=== PATIENT | female | born 1985 | race Caucasian/White ===

== ENCOUNTER → 2022-06-14 11:17 | Outpatient (BNVA) | payer BC, SELFPAY | PROVIDERS: Family Provider Family Medicine; PCP Family Medicine; Visit Provider Nurse Practitioner Family | DX: E66.01 Morbid (severe) obesity due to excess calories (principal); R07.9 Chest pain, unspecified; Z12.4 Encounter for screening for malignant neoplasm of cervix; I45.10 Unspecified right bundle-branch block | CPT/HCPCS: 80053; 80061; 83036; 84443; 84484; 85025 ==

== ENCOUNTER → 2022-06-21 09:44 | Outpatient (BNVA) | payer BC, MEDICAID, SELFPAY | PROVIDERS: Family Provider Family Medicine; PCP Family Medicine; Visit Provider Nurse Practitioner Family | DX: E66.01 Morbid (severe) obesity due to excess calories (principal); R73.03 Prediabetes; E03.9 Hypothyroidism, unspecified; I10 Essential (primary) hypertension | CPT/HCPCS: 84439; 84481 ==

== ENCOUNTER → 2022-07-01 11:00 | Outpatient (BNVA) | payer BC, MEDICAID, SELFPAY | PROVIDERS: Family Provider Family Medicine; PCP Family Medicine; Visit Provider Nurse Practitioner Women's Health | DX: N91.5 Oligomenorrhea, unspecified (principal); Z12.4 Encounter for screening for malignant neoplasm of cervix | CPT/HCPCS: 84146; 84702; 87624 ==

== ENCOUNTER 2022-08-31 12:48 | Outpatient (CLI) | payer BC, MEDICAID, SELFPAY ==
--- NOTE | 2022-08-31 13:45 | US_ITS ---
WS: [id number] US transvaginal [id number] HISTORY: N91.5 - Oligomenorrhea, unspecified COMPARISON: 05/06/2017 Uterus: 8.7 cm x 4.6 cm x 5.0 cm. Normal size anteverted uterus with mild flexion. No fibroid or mass. Endometrium: 0.7 cm. Normal. Right ovary: 2.9 cm x 2.6 cm x 1.6 cm. Normal size and vascularity, no cystic or solid masses. Left ovary: 1.7 cm x 1.1 cm x 1.7 cm. Normal size and vascularity, no cystic or solid masses. Small, physiologic amount of free fluid in the cul-de-sac. US/US transvaginal [id number] IMPRESSION: Normal pelvic ultrasound.
== END 2022-08-31 12:49 | disposition home or self-care (01) ==
PROVIDERS: PCP Nurse Practitioner Family; Visit Provider Nurse Practitioner Women's Health
DX: N91.5 Oligomenorrhea, unspecified (principal); E28.2 Polycystic ovarian syndrome; Z68.45 Body mass index [BMI] 70 or greater, adult
CPT/HCPCS: 76830

== ENCOUNTER → 2022-09-13 11:20 | Outpatient (BNVA) | payer BC, MEDICAID, SELFPAY | PROVIDERS: PCP Nurse Practitioner Family; Visit Provider Nurse Practitioner Family | DX: R73.03 Prediabetes (principal) | CPT/HCPCS: 80053; 80061; 83036; 84402; 84443; 85025 ==

== ENCOUNTER → 2022-12-06 11:50 | Outpatient (BNVA) | payer BC, MEDICAID, SELFPAY | PROVIDERS: PCP Nurse Practitioner Family; Visit Provider Nurse Practitioner Family | DX: R73.03 Prediabetes (principal); E28.2 Polycystic ovarian syndrome; I10 Essential (primary) hypertension; E03.9 Hypothyroidism, unspecified; E66.9 Obesity, unspecified | CPT/HCPCS: 80053; 80061; 83036; 84443; 85025 ==

== ENCOUNTER → 2023-02-28 12:01 | Outpatient (BNVA) | payer MEDICAID, SELFPAY | PROVIDERS: PCP Nurse Practitioner Family; Visit Provider Nurse Practitioner Family | DX: I10 Essential (primary) hypertension (principal) | CPT/HCPCS: 80053; 80061; 83036; 84443; 84702; 85025 ==

== ENCOUNTER → 2023-05-16 12:05 | Outpatient (BNVA) | payer MEDICAID, SELFPAY | PROVIDERS: PCP Nurse Practitioner Family; Visit Provider Nurse Practitioner Family | DX: R73.03 Prediabetes (principal); I10 Essential (primary) hypertension; E03.9 Hypothyroidism, unspecified | CPT/HCPCS: 80053; 80061; 82746; 83036; 84443; 85025 ==

== ENCOUNTER → 2023-07-25 11:23 | Outpatient (BNVA) | payer MEDICAID, SELFPAY | PROVIDERS: PCP Nurse Practitioner Family; Visit Provider Nurse Practitioner Family | DX: E03.9 Hypothyroidism, unspecified (principal) | CPT/HCPCS: 84439; 84443; 84481 ==

== ENCOUNTER → 2023-07-27 15:39 | Outpatient (BNVA) | payer MEDICAID, SELFPAY | PROVIDERS: PCP Nurse Practitioner Family; Visit Provider Internal Medicine | DX: R07.9 Chest pain, unspecified (principal); E03.9 Hypothyroidism, unspecified | CPT/HCPCS: 93005 ==

== ENCOUNTER 2023-08-03 09:56 | Day surgery (SDC) | payer MEDICAID, SELFPAY ==
[2023-08-01 10:47] VITALS: BMI 70.7
[2023-08-03 10:50] VITALS: BP 162/113; PULSE 69; RESP 18; TEMP 36.2; O2SAT 97; BMI 70.7
[2023-08-03] MEDS: sodium chloride 0.9% 1,000 ML 30 ML IV (10:57)
--- NOTE | 2023-08-03 10:57 | ANES.PREANE2 ---
Pre-Anesthetic Assessment Height/Weight: Height 1.8 m Weight 229.971 kg Temp Pulse Resp BP Pulse Ox O2 Del Method 97.2 F L 69 18 162/113 97 Room Air 08/03/23 10:50 08/03/23 10:50 08/03/23 10:50 08/03/23 10:50 08/03/23 10:50 08/03/23 10:50 Preop Diagnosis: GERD Operation Date: 08/03/23 11:30 Proposed Procedures p EGD 05038, K21.9(Not Applicable) - Kuldip Ji DO Familial anesthetic complications: None Was Beta Bruce taken within 24 hours: N/A Was Clonidine taken within 24 hours: N/A Last intake: Intake Last Liquid Date 08/02/23 Last Liquid Time 20:00 Last Solid Date 08/02/23 Last Solid Time 18:00 Social No alcohol and No tobacco Exam alert, oriented x 3, clear to auscultation bilaterally and regular rate & rhythm Airway Submandibular: within normal limits Cervical ROM: within normal limits Mallampati: Class III Dentition: full History/ROS No significant history except as noted and No significant complaints Pulmonary Asthma (No inhaler), Exertional Dyspnea and Sleep Apnea CV/HEM Hypertension Pericardial effusion 16 years ago None reported PCOS Hepatic None reported GI Gastroesophageal Reflux Disease (None this morning) Metabolic Diabetes Mellitus (Prediabetes), Morbid Obesity and Thyroid Disease [facility] [place] None reported Neuropsych Headache Anesthetic Plan ASA status: 3 Anesthesia: Anesthesia Evaluation, General and MAC Risk of > 500 ml blood loss (7ml/kg in children): No Medications/Allergies Home Medications Medication Instructions Recorded Confirmed Last Taken Type albuterol sulfate 2.5 mg/3 mL 2.5 mg (3 mL) inhalation QID PRN 05/16/23 08/03/23 Unknown Rx (0.083 %) solution for nebulization shortness of breath or wheezing #75 mL levothyroxine 88 mcg capsule 88 mcg PO DAILY #30 caps 05/16/23 08/03/23 08/03/23 Rx nebulizer accessories #1 ea 05/16/23 07/27/23 Unknown Rx lisinopril 40 mg tablet 40 mg PO DAILY #90 tabs 07/25/23 08/03/23 08/02/23 Rx metformin 500 mg 24 hr 1,000 mg PO DAILY 03/08/03/23 08/02/23 History tablet,extended release (gastric retention) zinc 50 mg tablet 50 mg PO DAILY 08/01/23 08/03/23 08/02/23 History Allergies Allergy/AdvReac Type Severity Reaction Status Date / Time egg Allergy ADR-Vomitin Verified 08/03/23 10:40 g Current Medications Generic Name Dose Route Start Last Admin Trade Name Freq PRN Reason Stop Dose Admin Sodium Chloride 1,000 mls @ 30 mls/hr 08/03/23 10:15 08/03/23 10:57 Sodium Chloride 0.9% IV 08/04/23 10:14 30 mls/hr .Q24H TIARRA Administration PFSH Anesthesia Medical History Cardiac tamponade Pericardial effusion Hypothyroidism No pertinent past medical history neghx:dm,dvt/pe PCP: [facility] Surgical History S/P pericardiocentesis (~2007) following viral URI. She thinks f/u was [facility]. Family History Unknown Cancer Denies fam hx of cancers, breast, ovarian, uterine, colon, pancreatic or thyroid. Other Diabetes Denies family history of Hypertension Stroke Social History Smoking and tobacco/nicotine status: never used tobacco/nicotine Second hand smoke exposure: No Alcohol intake: never Substance/Drug Use: never Adopted: No Caregiver/support person: No Lives independently: Yes Household members: spouse Housing: House Marital status: Number of children: 0 Highest education level completed: Associate Degree: Occupational, Technical, Vocational Program service: No Current occupational status: unemployed Female Reproductive History Date of last menstrual period: 07/13/23 Data Anesthesia Cardiac Studies: No Data to Display
[2023-08-03 10:59] LABS: OR HCG Qualitative Urine Negative (Negative)
--- NOTE | 2023-08-03 10:59 | W.PM.OPSUD ---
Surgery/Procedure H&P Update DATE OF PROCEDURE: August 03, 2023 DATE H&P PERFORMED: 07/18/23 H&P UPDATE INFORMATION: I have reviewed H&P completed within last 30 days, I have examined patient prior to procedure and No changes to prior documentation PLANNED PROCEDURE: Operation Date: 08/03/23 11:30 Proposed Procedures p EGD 98893, K21.9(Not Applicable) - Kuldip Ji, DO
[2023-08-03 11:01] LABS: Glucose Point of Care 100 mg/dL (70-110)
[2023-08-03 12:00] VITALS: BP 125/75; PULSE 67; RESP 14; TEMP 36.2; O2SAT 95
[2023-08-03 12:13] VITALS: BP 132/97; PULSE 67; RESP 16; O2SAT 97
--- NOTE | 2023-08-03 12:35 | ANE.PACU2 ---
Inpatient post-anesthesia follow up: Airway intact: Yes Vital signs: Temperature 97.1 F Pulse Rate 67 Respiratory Rate 16 Blood Pressure 132/97 Pulse Oximetry 97 Oxygen Delivery Me thod Room Air Oxygen Flow Rate Fraction of Inspir ed Oxygen Hydration adequate: Yes Nausea and vomiting: No Pain level: 1 Mental status: Baseline
== END 2023-08-03 12:35 | disposition home or self-care (01) ==
PROVIDERS: Anesthesiology; PCP Nurse Practitioner Family; Visit Provider Surgery
PROC: 0DJ08ZZ Inspection of Upper Intestinal Tract, Via Natural or Artificial Opening Endoscopic (ICD-10-PCS; CPT 43235; principal; 2023-08-03 11:30)
DX: K21.9 Gastro-esophageal reflux disease without esophagitis (principal); K44.9 Diaphragmatic hernia without obstruction or gangrene; K29.50 Unspecified chronic gastritis without bleeding; G47.30 Sleep apnea, unspecified; I10 Essential (primary) hypertension; E28.2 Polycystic ovarian syndrome; R73.03 Prediabetes; E03.9 Hypothyroidism, unspecified
CPT/HCPCS: 36416; 43239; 81025; 82962; 84703; 88305; J2704; J7030

== ENCOUNTER 2023-08-16 10:25 | Outpatient (CLI) | payer MEDICAID, SELFPAY ==
--- NOTE | 2023-08-16 11:00 | USCV_ITS ---
HectorMana Age: 37 Gender: F : 1985 Exam Date: 08/16/2023 11:07 Ordering Phys: Hal Mendez M.D ([email or web address]) Technologist: RIANA [place] [facility] [place]ication: PRE OP FOR SURGERY HISTORY OF FLUID AROUND HEART BP: / HR: 122 Rhythm: Sinus Technical Quality: Adequate MEASUREMENTS (Male / Female) Normal Values 2D ECHO LV Diastolic Diameter PLAX 4.6 cm 4.2 - 5.9 / 3.9 - 5.3 cm IVS Diastolic Thickness 1.5 cm 0.6 - 1.0 / 0.6 - 0.9 cm IVS Systolic Thickness 1.7 cm LVPW Diastolic Thickness 1.5 cm 0.6 - 1.0 / 0.6 - 0.9 cm LVPW Systolic Thickness 2.0 cm LVOT Diameter 2.1 cm LV Ejection Fraction 2D Teich 66.4 % LV Ejection Fraction MOD 2C 49.7 % LV Ejection Fraction 2C AL 51.2 % LA Diameter 4.1 cm RA Systolic Volume 4C AL 42.3 ml RA Systolic Volume 4C MOD 40.0 ml LA Sys Volume AL 57.9 cm cubed Aorta at Sinotubular Diameter 3.9 cm IVC Diameter 1.9 cm M-MODE LA Ao Ratio MM 1.1 AV Cusp Separation MM 2.4 cm DOPPLER AV Peak Velocity 99.0 cm/s LVOT Peak Velocity 84.0 cm/s AV Area Cont Eq vti 3.0 cm squared AV Area Cont Eq pk 2.9 cm squared MV Area PHT 2.5 cm squared Mitral E to A Ratio 1.3 TV Peak Velocity 104.5 cm/s TR Peak Velocity 114.0 cm/s TR Peak Gradient 5.2 mmHg TR Mean Velocity 71.0 cm/s TR Mean Gradient 2.5 mmHg TR Velocity Time Integral 26.8 cm TV Peak E Velocity 62.0 cm/s Right Atrial Pressure 3.0 mmHg Pulmonary Artery Systolic Pressu 8.2 mmHg PV Peak Velocity 111.0 cm/s RV Ejection Time 0.4 s FINDINGS Left Ventricle Left ventricle is normal in size. LV systolic function is normal with EF of 50-55%. No regional wall motion abnormalities are seen. Right Ventricle Normal in size and function. Right Atrium Normal in size Left Atrium Normal in size Mitral Valve Structurally normal mitral valve. Aortic Valve Grossly normal aortic valve. Tricuspid Valve Insufficient TR jet to evaluate RVSP Pulmonic Valve Not well-visualized Pericardium Grossly normal Aorta Aortic root appears dilated IVC Not well visualized CONCLUSIONS Technically limited quality echocardiogram because of poor ultrasonic windows. Optison was used to better assess LV systolic function. LV systolic function is normal with EF of 50 to 55%. Grossly valves are normal. Aortic root appears dilated. Hal Mendez MD (Electronically Signed) Final Date: 20 August 2023 21:45 S
[2023-08-16] MEDS: perflutren protein-a microsphr 0.22 mg/mL SDV 3 mL IV (12:09)
== END 2023-08-16 10:26 | disposition home or self-care (01) ==
LOC: RAD 10:25
PROVIDERS: PCP Nurse Practitioner Family; Visit Provider Internal Medicine
DX: R06.02 Shortness of breath (principal)
CPT/HCPCS: C8929; Q9956

== ENCOUNTER → 2023-08-23 12:05 | Outpatient (BNVA) | payer MEDICAID, SELFPAY | PROVIDERS: PCP Nurse Practitioner Family; Visit Provider Nurse Practitioner Family | DX: R73.03 Prediabetes (principal); I10 Essential (primary) hypertension; E03.9 Hypothyroidism, unspecified; E66.9 Obesity, unspecified; E28.2 Polycystic ovarian syndrome | CPT/HCPCS: 80053; 80061; 83036; 84443; 85025 ==

== ENCOUNTER 2023-09-27 09:46 | Outpatient (CLI) | payer MEDICAID, SELFPAY ==
[2023-09-27 10:29] LABS: Basophils % 0.3 %; Eosinophils # 0.2 10^3/uL (0.0-0.8); Eosinophils % 3.6 %; Hematocrit 42.3 % (36-47); Lymphocytes # 1.7 10^3/uL (0.8-4.8); Lymphocytes % 26.7 %; Mean Corpuscular HGB Conc 33.1 g/dL (30-55); Mean Corpuscular Hemoglobin 28.5 pg (27-33); Mean Corpuscular Volume 86.2 fl (85-98); Mean Platelet Volume 10.9 fL (7.4-10.4); Monocytes # 0.5 10^3/uL (0.2-0.9); Neutrophils # 4.02 10^3/uL (1.8-7.7); Neutrophils % 62.2 %; Nucleated Red Blood Cells % 0 %; Platelet Count 212 10^3/cmm (157-399); Red Blood Count 4.91 10^6/uL (3.85-5.65); Red Cell Distribution Width 12.1 % (12.1-15.1); White Blood Count 6.45 10^3/uL (3.29-11.43)
[2023-09-27 10:44] LABS: Estmated Average Glucose 103; Hemoglobin A1C 5.2 % (4.0-6.0)
[2023-09-27 10:57] LABS: Calcium 8.7 mg/dL (8.5-10.5); Parathyroid Hormone 35.2 pg/mL (15-65)
[2023-09-27 11:03] LABS: SARS Covid-2 Antigen negative (Negative)
[2023-09-27 11:09] LABS: 25 Hydroxy Vitamin D 20 ng/mL (30-100); Alanine Aminotransferase 40 U/L (0-33); Albumin Level 4.1 g/dL (3.5-5.2); Alkaline Phosphatase 48 U/L (35-105); Anion Gap 16.2 (5-19); Aspartate Amino Transferase 30 U/L (0-32); Blood Urea Nitrogen 15 mg/dL (6-20); Calcium 8.7 mg/dL (8.5-10.5); Carbon Dioxide 23 mmol/L (22-29); Chloride 102 mmol/L (98-107); Chol HDL Ratio 3.17 mg/dL (0.0-4.40); Cholesterol 133 mg/dL (0-200); Ferritin 168 ng/mL (15-150); Glomerular Filtration Rate 113.1 mL/min (90-130); Glucose 106 mg/dL (65-115); HDL Cholesterol 42 mg/dL (60-100); Iron 83 ug/dL (37-145); LDL Cholesterol Calculated 59 mg/dL (50-129); Osmolality Calculated 285 mOsm/kg (285-295); Percent Saturation 25.2 % (20-50); Potassium 4.2 mmol/L (3.5-5.1); Sodium 137 mmol/L (136-145); Thyroid Stimulating Hormone 4.66 uIU/mL (0.27-4.20); Total Bilirubin 0.6 mg/dL (0.15-1.2); Total Iron Binding Capacity 329 mcg/dl; Total Protein 8.1 g/dL (6.6-8.7); Triglycerides 159 mg/dL (0-150); Unsaturated Iron Binding 246 ug/dL (112-347); Vitamin B12 499 pg/mL (232-1245)
[2023-09-30 13:41] LABS: Folate Level 8.4 ng/mL (4.8-37.3)
[2023-10-01 11:30] LABS: Cotinine, Urine <2 ng/mL; Nicotine, Urine <2 ng/mL
== END 2023-09-27 09:47 | disposition home or self-care (01) ==
LOC: LAB 09:49
PROVIDERS: PCP Nurse Practitioner Family; Visit Provider Nurse Practitioner Adult Health
DX: E66.01 Morbid (severe) obesity due to excess calories (principal); I10 Essential (primary) hypertension; Z68.45 Body mass index [BMI] 70 or greater, adult
CPT/HCPCS: 36415; 80053; 80061; 80323; 82306; 82310; 82607; 82728; 82746; 83036; 83540; 83550; 83970; 84443; 85025; 87426

== ENCOUNTER 2023-10-10 11:26 | Outpatient (CLI) | payer MEDICAID, SELFPAY ==
[2023-10-16 03:44] LABS: Cotinine, Urine <2 ng/mL; Nicotine, Urine <2 ng/mL
== END 2023-10-10 11:27 | disposition home or self-care (01) ==
LOC: LAB 11:27
PROVIDERS: PCP Nurse Practitioner Family; Visit Provider Surgery
DX: K29.70 Gastritis, unspecified, without bleeding (principal); B96.81 Helicobacter pylori [H. pylori] as the cause of diseases classified elsewhere
CPT/HCPCS: 80323; 87338

== ENCOUNTER 2023-10-10 11:30 | Outpatient (CLI) | payer MEDICAID, SELFPAY | END 2023-10-10 11:31 | disposition home or self-care (01) | LOC: SLEEP 10-11 11:20 | PROVIDERS: PCP Nurse Practitioner Family; Visit Provider Nurse Practitioner Family | DX: G47.33 Obstructive sleep apnea (adult) (pediatric) (principal) | CPT/HCPCS: G0399 ==

== ENCOUNTER 2023-10-11 12:29 | Outpatient (CLI) | payer MEDICAID, SELFPAY ==
--- NOTE | 2023-10-11 12:40 | XRR_ITS ---
PROCEDURE INFORMATION: Exam: XR Chest Exam date and time: 10/11/2023 12:53 PM Age: 38 years old Clinical indication: Shortness of breath; Additional info: E66.01 - morbid (severe) obesity due to excess calories TECHNIQUE: Imaging protocol: Radiologic exam of the chest. Views: 2 views. COMPARISON: No relevant prior studies available. FINDINGS: Lungs: No focal consolidation. Pleural spaces: No evidence of pneumothorax. No evidence of pleural effusion. Heart/Mediastinum: Cardiomediastinal silhouette is within normal limits. Bones/joints: No evidence of acute osseous abnormality. XR/XR chest 2V* [id number] IMPRESSION: 1. No acute cardiopulmonary abnormality.
[2023-10-11 12:54] VITALS: PULSE 81; RESP 18; O2SAT 98
[2023-10-11] MEDS: albuterol 2.5 mg/3 mL Neb INHALATION (12:54)
[2023-10-11 12:59] VITALS: PULSE 88
== END 2023-10-11 12:30 | disposition home or self-care (01) ==
PROVIDERS: PCP Nurse Practitioner Family; Visit Provider Nurse Practitioner Family
DX: Z01.811 Encounter for preprocedural respiratory examination (principal); E66.01 Morbid (severe) obesity due to excess calories
CPT/HCPCS: 71046; 94060; 94729; J7613

== ENCOUNTER → 2023-10-24 10:46 | Outpatient (BNVA) | payer MEDICAID, SELFPAY | PROVIDERS: PCP Nurse Practitioner Family; Visit Provider Nurse Practitioner Family | DX: E66.9 Obesity, unspecified (principal); G47.30 Sleep apnea, unspecified | CPT/HCPCS: 80307 ==

== ENCOUNTER → 2023-11-21 10:28 | Outpatient (BNVA) | payer MEDICAID, SELFPAY | PROVIDERS: PCP Nurse Practitioner Family; Visit Provider Nurse Practitioner Family | DX: R73.03 Prediabetes (principal); I10 Essential (primary) hypertension | CPT/HCPCS: 80053; 80061; 84443; 87338 ==

== ENCOUNTER → 2024-02-16 11:48 | Outpatient (BNVA) | payer MEDICAID, SELFPAY | PROVIDERS: PCP Nurse Practitioner Family; Visit Provider Nurse Practitioner Family | DX: I10 Essential (primary) hypertension (principal) | CPT/HCPCS: 80053; 80061; 84443; 85025 ==

== ENCOUNTER → 2024-02-20 12:59 | Outpatient (BNVA) | payer MEDICAID, SELFPAY | PROVIDERS: PCP Nurse Practitioner Family; Visit Provider Nurse Practitioner Family | DX: S60.211A Contusion of right wrist, initial encounter (principal); M25.531 Pain in right wrist; W19.XXXA Unspecified fall, initial encounter | CPT/HCPCS: 73110; 80053; 80061; 82306; 82310; 82607; 82728; 82746; 83036; 83550; 83970; 84425; 84443; 84446; 84590; 84597; 85025 ==

== ENCOUNTER → 2024-02-28 11:23 | Outpatient (BNVA) | payer MEDICAID, SELFPAY | PROVIDERS: PCP Nurse Practitioner Family; Visit Provider Nurse Practitioner Family | DX: E66.9 Obesity, unspecified (principal) | CPT/HCPCS: 84425; 84597 ==

== ENCOUNTER 2024-04-23 05:39 | Emergency (ER) | payer MEDICAID, SELFPAY ==
--- NOTE | 2024-04-23 05:47 | XRR_ITS ---
PROCEDURE INFORMATION: Exam: XR Chest Exam date and time: 04/23/2024 6:05 AM Age: 38 years old Clinical indication: Cough and shortness of breath; Patient HX: Cough with SOB. History of asthma. ; Additional info: Dyspnea/cough TECHNIQUE: Imaging protocol: Radiologic exam of the chest. Views: 1 view. COMPARISON: CR XR chest 2V* [id number] 10/11/2023 12:53 PM FINDINGS: Lungs: Mild atelectasis or infiltrate in the left lower lobe, new since the prior study. Pleural spaces: Unremarkable. No pleural effusion. No pneumothorax. Heart/Mediastinum: Unremarkable. No cardiomegaly. Bones/joints: Unremarkable. XR/XR chest 1V portable [id number] IMPRESSION: Mild opacity at the left lung base.
--- NOTE | 2024-04-23 05:47 | W.ED.SOB ---
HPI - SOB/Dyspnea General: Chief Complaint: Upper Respiratory Infection Stated Complaint: Hard to breathe coughing phlem lungs hurt Time Seen by Provider: 04/23/24 05:46 History of Present Illness: HPI Narrative: 35-year-old female presents emergency room complaining of a productive cough. Cough began yesterday and overnight. Patient denies fever. She does have an albuterol inhaler at home which did not seem to help very much. She is scheduled for a bariatric surgery later this week. No chest pain no fever no vomiting or diarrhea. Associated symptoms: Deny abdominal pain, chest pain or fever(s) Related Data Home Medications Medication Instructions Recorded Confirmed acetaminophen 500 mg tablet 500 mg PO Q8H 04/23/24 04/23/24 calcium 315 mg (as 2 tab PO TID 04/23/24 04/23/24 citrate)-vitamin D3 6.25 mcg (250 unit) tablet cyanocobalamin (vitamin B-12) 500 500 mcg PO DAILY 04/23/24 04/23/24 mcg tablet cyclobenzaprine 10 mg tablet 10 mg PO Q8H 04/23/24 04/23/24 ferrous sulfate 325 mg (65 mg 325 mg PO DAILY 04/23/24 04/23/24 iron) tablet (FeroSul) hyoscyamine sulfate 0.125 mg 0.125 mg PO Q6H 04/23/24 04/23/24 sublingual tablet omeprazole 20 mg capsule,delayed 20 mg PO BID 04/23/24 04/23/24 release ondansetron HCl 4 mg tablet 4 mg PO Q8H PRN Nausea And Vomiting 04/23/24 04/23/24 pediatric multivitamin no.61-vit 2 cap PO DAILY 04/23/24 04/23/24 D3 1,500 unit-vit K 800 mcg capsule (MVW Complete Formulation Multivitamin) polyethylene glycol 3350 17 17 g PO BID 04/23/24 04/23/24 gram/dose oral powder scopolamine base 1 mg over 3 days See Rx Instructions .Route .COMPLEX 04/23/24 04/23/24 transdermal patch Previous Rx's Medication Instructions Recorded albuterol sulfate 2.5 mg/3 mL 2.5 mg (3 mL) inhalation QID PRN 05/16/23 (0.083 %) solution for nebulization shortness of breath or wheezing #75 mL nebulizer accessories #1 ea 05/16/23 albuterol sulfate 90 mcg/actuation 2 puff inhalation QID PRN 10/24/23 aerosol inhaler shortness of breath or wheezing #6.7 grams lisinopril 40 mg tablet 40 mg PO DAILY #90 tabs 02/16/24 metformin 500 mg 24 hr 1,000 mg (2 x 500 mg) PO DAILY 02/16/24 tablet,extended release (gastric #360 tabs retention) levothyroxine 137 mcg capsule 137 mcg PO DAILY #30 caps 02/17/24 cholecalciferol (vitamin D3) 125 125 mcg PO DAILY #30 caps 02/27/24 mcg (5,000 unit) capsule albuterol sulfate 90 mcg/actuation 2 inh inhalation Q4H PRN shortness 04/23/24 aerosol inhaler of breath or wheezing #18 grams levofloxacin 750 mg tablet 750 mg PO DAILY 7 days #7 tabs 04/23/24 Allergies Allergy/AdvReac Type Severity Reaction Status Date / Time egg Allergy ADR-Vomitin Verified 03/15/24 10:05 g Review of Systems Const: Denies: fever(s) or chills Card: Denies: chest pain Resp: Reports: dyspnea, productive cough and wheezing GI: Denies: abdominal pain : Denies: dysuria, urinary frequency or urinary urgency Musc: Denies: neck pain or back pain Skin/Breast: Denies: rash PFSH ED PFSH: Medical History Cardiac tamponade Pericardial effusion Hypothyroidism No pertinent past medical history neghx:dm,dvt/pe PCP: [facility] Surgical History S/P pericardiocentesis (~2007) following viral URI. She thinks f/u was [facility]. Family History Unknown Cancer Denies fam hx of cancers, breast, ovarian, uterine, colon, pancreatic or thyroid. Other Diabetes Denies family history of Hypertension Stroke Social History Smoking and tobacco/nicotine status: never used tobacco/nicotine Second hand smoke exposure: No Alcohol intake: never Substance/Drug Use: never Adopted: No Caregiver/support person: No Lives independently: Yes Household members: spouse Housing: House Marital status: Number of children: 0 Highest education level completed: Associate Degree: Occupational, Technical, Vocational Program service: No Current occupational status: unemployed Physical Exam Const: GENERAL APPEARANCE: cooperative ORIENTATION/CONSCIOUSNESS: Yes awake, Yes oriented to person, Yes oriented to place and Yes oriented to time HENMT: COMMON NORMALS: normocephalic, atraumatic and hearing grossly normal bilaterally HEAD & SCALP: normocephalic and atraumatic Resp: COMMON NORMALS: normal respiratory effort, No retractions, No use of accessory muscles and clear to auscultation bilaterally AUSCULTATION: clear to auscultation bilaterally Cardio: COMMON NORMALS: regular rate, regular rhythm and No murmurs present (Cardio) RATE: regular rate RHYTHM: regular rhythm GI: COMMON NORMALS: Soft to palpation and No hepatosplenomegaly present AUSCULTATION: Yes normoactive bowel sounds PALPATION: Yes Soft to palpation, No Tenderness to palpation present (GI), No Guarding due to palpation present (GI) and Yes No hepatosplenomegaly present Extremity: COMMON NORMALS: normal to inspection, capillary refill normal, no clubbing, cyanosis or edema, no calf tenderness and no pedal edema Neuro: SENSORIUM/ORIENTATION: Yes oriented to person, Yes oriented to place and Yes oriented to time Skin: COMMON NORMALS: no rashes or lesions noted GENERAL SKIN EXAM: no rashes or lesions noted Course Vital Signs: Vital signs: Vital Signs Temperature 98.4 F 04/23/24 06:06 Pulse Rate 77 04/23/24 08:54 Respiratory Rate 19 H 04/23/24 08:11 Blood Pressure 134/86 04/23/24 08:54 Pulse Oximetry 98 04/23/24 08:54 Oxygen Delivery Me thod Room Air 04/23/24 08:11 MDM - SOB/Dyspnea Medical Decision Making X-ray shows infiltrate at the left lower lobe at the base. This is consistent with her other symptoms. She does not have significant leukocytosis no hypoxemia. Does not need to be hospitalized we will treat as an outpatient Levaquin 750 once daily for 7 days. She is scheduled for bariatric surgery in 3 days recommend that she contact the surgeons office regarding this. Most likely they will have to delay at given this is a relatively major surgery and they will not likely wish to proceed when she has a pre-existing illness. Medical Records I reviewed the patient's medical records. Lab Data I reviewed the patient's lab results. 04/23/24 06:12 04/23/24 06:12 Labs/Radiology: Radiology Impressions Chest X-Ray 04/23/24 05:47 IMPRESSION: Mild opacity at the left lung base. Laboratory Results WBC 3.70 10^3/uL (3.29-11.43) 04/23/24 06:12 RBC 4.60 10^6/uL (3.85-5.65) 04/23/24 06:12 Hgb 12.90 g/dL (11.27-16.99) 04/23/24 06:12 Hct 39.4 % (36-47) 04/23/24 06:12 MCV 85.7 fl (85-98) 04/23/24 06:12 MCH 28.0 pg (27-33) 04/23/24 06:12 MCHC 32.7 g/dL (30-55) 04/23/24 06:12 RDW 12.9 % (12.1-15.1) 04/23/24 06:12 Plt Count 168 10^3/cmm (157-399) 04/23/24 06:12 MPV 10.6 fL (7.4-10.4) H 04/23/24 06:12 Neut % (Auto) 53.6 % 04/23/24 06:12 Lymph % (Auto) 31.6 % 04/23/24 06:12 [place]berry % (Auto) 8.6 % 04/23/24 06:12 Eos % (Auto) 5.4 % 04/23/24 06:12 Baso % (Auto) 0.5 % 04/23/24 06:12 Neut # (Auto) 1.98 10^3/uL (1.8-7.7) 04/23/24 06:12 Lymph # (Auto) 1.2 10^3/uL (0.8-4.8) 04/23/24 06:12 [place]berry # (Auto) 0.3 10^3/uL (0.2-0.9) 04/23/24 06:12 Eos # (Auto) 0.2 10^3/uL (0.0-0.8) 04/23/24 06:12 Baso # (Auto) 0.0 10^3/uL (0.0-0.1) 04/23/24 06:12 Nucleated RBC % (auto) 0 % 04/23/24 06:12 Nucleated RBCs # 0.0 /100WBC 04/23/24 06:12 Sodium 136 mmol/L (136-145) 04/23/24 06:12 Potassium 4.2 mmol/L (3.5-5.1) 04/23/24 06:12 Chloride 104 mmol/L (98-107) 04/23/24 06:12 Carbon Dioxide 22 mmol/L (22-29) 04/23/24 06:12 Anion Gap 14.2 (5-19) 04/23/24 06:12 BUN 11 mg/dL (6-20) 04/23/24 06:12 Creatinine 0.6 mg/dL (0.5-0.9) 04/23/24 06:12 GFR Calculation 113.1 mL/min (90-130) 04/23/24 06:12 Glucose 100 mg/dL (65-115) 04/23/24 06:12 Calculated Osmolality 281 mOsm/kg (285-295) L 04/23/24 06:12 Calcium 8.3 mg/dL (8.5-10.5) L 04/23/24 06:12 Total Bilirubin 0.5 mg/dL (0.15-1.2) 04/23/24 06:12 AST 21 U/L (0-32) 04/23/24 06:12 ALT 20 U/L (0-33) 04/23/24 06:12 Alkaline Phosphatase 42 U/L (35-105) 04/23/24 06:12 NT-Pro-B Natriuret Pep 107 pg/mL (0-125) 04/23/24 06:12 Total Protein 7.1 g/dL (6.6-8.7) 04/23/24 06:12 Albumin 3.8 g/dL (3.5-5.2) 04/23/24 06:12 Globulin 3.3 g/dL (1.3-4.6) 04/23/24 06:12 Coronavirus (PCR) Negative (Negative) 04/23/24 06:11 Influenza A (PCR) Negative (Negative) 04/23/24 06:11 Influenza Type B (PCR) Negative (Negative) 04/23/24 06:11 RSV (PCR) Negative (Negative) 04/23/24 06:11 All radiology interpretation(s) finalized by discharge Discharge Plan Discharge Patient Disposition: Home Clinical Impression: Pneumonia Condition: Stable Prescriptions: New albuterol sulfate 90 mcg/actuation HFA aerosol inhaler 2 inh INHALATION Q4H PRN (Reason: shortness of breath or wheezing) Qty: 18 0RF levofloxacin 750 mg tablet 750 mg PO DAILY 7 Days Qty: 7 0RF No Action (DME) nebulizer accessories Misc See Rx Instructions .Route Qty: 1 0RF Rx Instructions: As directed albuterol sulfate 2.5 mg /3 mL (0.083 %) solution for nebulization 2.5 mg inhalation QID PRN (Reason: shortness of breath or wheezing) Qty: 75 2RF albuterol sulfate 90 mcg/actuation HFA aerosol inhaler 2 puff inhalation QID PRN (Reason: shortness of breath or wheezing) Qty: 6.7 5RF metformin 500 mg tablet,ER andrea.retention 24 hr 1,000 mg PO DAILY Qty: 360 0RF lisinopril 40 mg tablet 40 mg PO DAILY Qty: 90 0RF levothyroxine 137 mcg capsule 137 mcg PO DAILY Qty: 30 2RF cholecalciferol (vitamin D3) 125 mcg (5,000 unit) capsule 125 mcg PO DAILY Qty: 30 2RF cyclobenzaprine 10 mg tablet 10 mg PO Q8H ondansetron HCl 4 mg tablet 4 mg PO Q8H PRN (Reason: Nausea And Vomiting) acetaminophen 500 mg tablet 500 mg PO Q8H cyanocobalamin (vitamin B-12) 500 mcg tablet 500 mcg PO DAILY ferrous sulfate [FeroSul] 325 mg (65 mg iron) tablet 325 mg PO DAILY hyoscyamine sulfate 0.125 mg tablet, sublingual 0.125 mg PO Q6H omeprazole 20 mg capsule,delayed release(DR/EC) 20 mg PO BID polyethylene glycol 3350 17 gram/dose powder 17 g PO BID scopolamine base 1 mg over 3 days patch 3 day See Rx Instructions .ROUTE .COMPLEX Rx Instructions: APPLY ONE PATCH ON THE SKIN BEHIND EAR AT 8PM THE NIGHT PRIOR TO SURGERY ONCE FOR ONE DOSE calcium citrate-vitamin D3 315 mg-6.25 mcg (250 unit) tablet 2 tab PO TID MVW Complete Formul Multivit 1,500-800 unit-mcg capsule 2 cap PO DAILY Discharge Orders: Discharge ED (Routine); Ordered 04/23/24 Ordered By: Servando Herman Referrals: Carlie Hillman FNP-C [Primary Care Provider] - Discharge Diet: Usual diet Discharge Activity: Resume usual activity Patient Instructions: Opioid Safety, Pain Management Activity Restrictions/Additional Instructions: Thank you for choosing [facility] for your healthcare needs today. It is very important that you follow up as instructed or that you return to the Emergency Department should you have concerns or if your condition changes or worsens in any way. You were seen in the emergency room with complaints of productive cough. Your white count was normal and your chest x-ray you had signs of an early pneumonia. Recommend starting on Levaquin 750 mg once daily for 7 days. Use albuterol as needed. As to your upcoming surgery recommend that you contact the surgeon advised him that you were started on antibiotics for pneumonia they can work with you to determine if the surgery needs to be delayed or not. Coding Level of Care Code ED Potato Chip Sorter for Yennifer Baldwin
[2024-04-23 06:06] VITALS: BP 140/90; PULSE 68; RESP 18; TEMP 36.9; O2SAT 95; BMI 43.0
[2024-04-23 06:13] VITALS: BP 140/90; PULSE 73; RESP 15; O2SAT 98
--- NOTE | 2024-04-23 06:17 | ECG_ITS ---
[facility]: 2024-[facility]23 Pat Name: Mana Young Department: Room: Gender: Female Infrastructure Technician: : 1985 Requested By: Servando Bowman Order Number: [id number] Dorothea MD: Jami Valerio M.D. Measurements Intervals [place] Rate: 78 P: 63 [place]: 178 QRS: -39 QRSD: 109 T: 88 QT: 392 QTc: 449 Interpretive Statements SINUS RHYTHM LEFT AXIS DEVIATION [QRS AXIS < -30] PATTERN CONSISTENT WITH PULMONARY DISEASE NONSPECIFIC T-WAVE ABNORMALITY Compared to ECG 07/27/2023 15:47:07 Left-axis deviation now present T-wave abnormality still present Electronically Signed On 04-23-2024 19:23:10 BOARD DESIGN ENGINEER by Jami Valerio M.D. [email or web address]
[2024-04-23 06:24] LABS: Basophils % 0.5 %; Eosinophils # 0.2 10^3/uL (0.0-0.8); Eosinophils % 5.4 %; Hematocrit 39.4 % (36-47); Lymphocytes # 1.2 10^3/uL (0.8-4.8); Lymphocytes % 31.6 %; Mean Corpuscular HGB Conc 32.7 g/dL (30-55); Mean Corpuscular Volume 85.7 fl (85-98); Mean Platelet Volume 10.6 fL (7.4-10.4); Monocytes # 0.3 10^3/uL (0.2-0.9); Monocytes % 8.6 %; Neutrophils # 1.98 10^3/uL (1.8-7.7); Neutrophils % 53.6 %; Nucleated Red Blood Cells % 0 %; Platelet Count 168 10^3/cmm (157-399); Red Cell Distribution Width 12.9 % (12.1-15.1)
[2024-04-23] MEDS: dexamethasone 10 mg/mL INJ IM (06:24)
[2024-04-23 06:35] VITALS: PULSE 65; RESP 15; O2SAT 99
[2024-04-23] MEDS: ipratropium-albuterol 3 mL Neb INHALATION (06:35)
[2024-04-23 06:55] LABS: Alanine Aminotransferase 20 U/L (0-33); Albumin Level 3.8 g/dL (3.5-5.2); Alkaline Phosphatase 42 U/L (35-105); Anion Gap 14.2 (5-19); Aspartate Amino Transferase 21 U/L (0-32); Blood Urea Nitrogen 11 mg/dL (6-20); Calcium 8.3 mg/dL (8.5-10.5); Carbon Dioxide 22 mmol/L (22-29); Chloride 104 mmol/L (98-107); Creatinine Clr Calc Pharmacy 195.4851; Globulin 3.3 g/dL (1.3-4.6); Glomerular Filtration Rate 113.1 mL/min (90-130); Glucose 100 mg/dL (65-115); NT Pro B Type Natriuretic Pept 107 pg/mL (0-125); Osmolality Calculated 281 mOsm/kg (285-295); Potassium 4.2 mmol/L (3.5-5.1); Sodium 136 mmol/L (136-145); Total Bilirubin 0.5 mg/dL (0.15-1.2); Total Protein 7.1 g/dL (6.6-8.7)
[2024-04-23 07:03] LABS: Covid PCR NEGATIVE (Negative); Influenza A NEGATIVE (Negative); Influenza B NEGATIVE (Negative); Respiratory Syncytial Virus Ce NEGATIVE (Negative)
[2024-04-23 07:33] VITALS: PULSE 80; RESP 18; O2SAT 96
--- NOTE | 2024-04-23 07:41 | PC.PHAR ---
Patient to start medications that state unknown after surgery .
[2024-04-23 08:11] VITALS: BP 132/99; PULSE 75; RESP 19; O2SAT 94
[2024-04-23 08:54] VITALS: BP 134/86; PULSE 77; O2SAT 98
== END 2024-04-23 08:59 | disposition home or self-care (01) ==
PROVIDERS: Emergency Provider Family Medicine; PCP Nurse Practitioner Family
DX: J18.9 Pneumonia, unspecified organism (principal); Z11.52 Encounter for screening for COVID-19
CPT/HCPCS: 0241U; 71045; 80053; 83880; 85025; 93005; 94640; 96372; 99285; J1100

== ENCOUNTER 2024-05-15 20:00 | Outpatient (CLI) | payer MEDICAID, SELFPAY | END 2024-05-15 20:01 | disposition home or self-care (01) | LOC: SLEEP 23:45 | PROVIDERS: PCP Nurse Practitioner Family; Visit Provider Nurse Practitioner Family | DX: G47.33 Obstructive sleep apnea (adult) (pediatric) (principal); G47.61 Periodic limb movement disorder; Z99.89 Dependence on other enabling machines and devices; J18.9 Pneumonia, unspecified organism; E03.9 Hypothyroidism, unspecified; E66.9 Obesity, unspecified | CPT/HCPCS: 71046; 80053; 80061; 80307; 84443; 85025; 95811 ==

== ENCOUNTER → 2024-08-21 11:56 | Outpatient (BNVA) | payer MEDICAID, SELFPAY | PROVIDERS: Family Provider Nurse Practitioner Family; PCP Nurse Practitioner Family; Visit Provider Nurse Practitioner Family | DX: I10 Essential (primary) hypertension (principal); E03.9 Hypothyroidism, unspecified; Z98.84 Bariatric surgery status; Z68.43 Body mass index [BMI] 50.0-59.9, adult | CPT/HCPCS: 73030; 80053; 80061; 83036; 84439; 84443; 84481; 85025; 87071; 87880 ==

== ENCOUNTER 2024-08-31 10:44 | Outpatient (CLI) | payer MEDICAID, SELFPAY ==
--- NOTE | 2024-08-31 11:00 | US_ITS ---
WS: [id number] THYROID ULTRASOUND HISTORY: E03.9 - Hypothyroidism, unspecified COMPARISON: None available. Right lobe: 1.4 cm x 1.9 cm x 4.0 cm (w x ap x l). Volume: 5.2 cm3. Very slightly prominent thyroid is heterogeneous but there is no discrete mass. No increased vascularity. Left lobe: 1.3 cm x 1.7 cm x 3.7 cm (w x ap x l). Volume: 3.9 cm3. Heterogeneous gland but there is no discrete mass or nodule. Isthmus: 0.7 cm. US/US thyroid [id number] IMPRESSION: Heterogeneous slightly lobular gland. Most consistent with mild goiter. No mass .
== END 2024-08-31 10:45 | disposition home or self-care (01) ==
PROVIDERS: Family Provider Nurse Practitioner Family; PCP Nurse Practitioner Family; Visit Provider Nurse Practitioner Family
DX: E03.9 Hypothyroidism, unspecified (principal); R93.89 Abnormal findings on diagnostic imaging of other specified body structures
CPT/HCPCS: 76536

== ENCOUNTER → 2024-09-17 14:52 | Outpatient (BNVA) | payer MEDICAID, SELFPAY | PROVIDERS: Family Provider Nurse Practitioner Family; PCP Nurse Practitioner Family; Visit Provider Internal Medicine | DX: I10 Essential (primary) hypertension (principal); E03.9 Hypothyroidism, unspecified; E66.9 Obesity, unspecified; Z68.43 Body mass index [BMI] 50.0-59.9, adult | CPT/HCPCS: 99214 ==

== ENCOUNTER → 2024-11-06 12:04 | Outpatient (BNVA) | payer MEDICAID, SELFPAY | PROVIDERS: Family Provider Nurse Practitioner Family; PCP Nurse Practitioner Family; Visit Provider Nurse Practitioner Family | DX: I10 Essential (primary) hypertension (principal); E03.9 Hypothyroidism, unspecified | CPT/HCPCS: 80053; 80061; 83036; 84443; 85025 ==

== ENCOUNTER 2024-11-26 11:41 | Outpatient (CLI) | payer MEDICAID, SELFPAY ==
[2024-11-26 14:12] LABS: Hematocrit 40.0 % (36-47); Hemoglobin 13.00 g/dL (11.27-16.99); Mean Corpuscular HGB Conc 32.5 g/dL (30-55); Mean Corpuscular Hemoglobin 28.9 pg (27-33); Mean Corpuscular Volume 88.9 fl (85-98); Nucleated Red Blood Cells % 0 %; Platelet Count 190 10^3/cmm (157-399); Red Blood Count 4.50 10^6/uL (3.85-5.65); White Blood Count 5.77 10^3/uL (3.29-11.43)
[2024-11-26 14:54] LABS: Alanine Aminotransferase 13 U/L (0-33); Albumin Level 4.1 g/dL (3.5-5.2); Alkaline Phosphatase 42 U/L (35-105); Anion Gap 19.2 (5-19); Aspartate Amino Transferase 15 U/L (0-32); Blood Urea Nitrogen 13 mg/dL (6-20); Calcium 9.2 mg/dL (8.5-10.5); Carbon Dioxide 23 mmol/L (22-29); Chloride 103 mmol/L (98-107); Cholesterol 114 mg/dL (0-200); Ferritin 182 ng/mL (15-150); Globulin 3.3 g/dL (1.3-4.6); Glucose 85 mg/dL (65-115); HDL Cholesterol 36 mg/dL (60-100); Iron 61 ug/dL (37-145); Osmolality Calculated 291 mOsm/kg (285-295); Potassium 4.2 mmol/L (3.5-5.1); Sodium 141 mmol/L (136-145); Total Iron Binding Capacity 294 mcg/dl; Total Protein 7.4 g/dL (6.6-8.7); Triglycerides 109 mg/dL (0-150); Unsaturated Iron Binding 233 ug/dL (112-347)
[2024-11-26 15:08] LABS: Calcium 9.1 mg/dL (8.5-10.5)
[2024-11-26 15:09] LABS: Vitamin B12 503 pg/mL (232-1245)
[2024-11-26 15:24] LABS: Estmated Average Glucose 103; Hemoglobin A1C 5.2 % (4.0-6.0)
== END 2024-11-26 11:42 | disposition home or self-care (01) ==
PROVIDERS: Family Provider Nurse Practitioner Family; PCP Nurse Practitioner Family; Visit Provider Nurse Practitioner Adult Health
DX: G47.33 Obstructive sleep apnea (adult) (pediatric) (principal); I10 Essential (primary) hypertension; K90.89 Other intestinal malabsorption; Z98.84 Bariatric surgery status; E66.01 Morbid (severe) obesity due to excess calories
CPT/HCPCS: 36415; 80053; 80061; 82306; 82310; 82525; 82607; 82728; 82746; 83036; 83540; 83550; 83970; 84425; 85025

== ENCOUNTER → 2025-02-20 11:55 | Outpatient (BNVA) | payer MEDICAID, SELFPAY | PROVIDERS: Family Provider Nurse Practitioner Family; PCP Nurse Practitioner Family; Visit Provider Nurse Practitioner Family | DX: E03.9 Hypothyroidism, unspecified (principal) | CPT/HCPCS: 80053; 80061; 83036; 84443; 85025 ==

== ENCOUNTER → 2025-03-06 15:53 | Outpatient (BNVA) | payer MEDICAID, SELFPAY | PROVIDERS: Family Provider Nurse Practitioner Family; PCP Nurse Practitioner Family; Visit Provider Nurse Practitioner Women's Health | DX: Z01.419 Encounter for gynecological examination (general) (routine) without abnormal findings (principal); E28.2 Polycystic ovarian syndrome | CPT/HCPCS: 82306; 82670; 83001; 83036; 83520; 84402; 84403; 84439; 84443; 84481 ==

== ENCOUNTER 2025-04-15 11:34 | Outpatient (CLI) | payer MEDICAID, SELFPAY ==
--- NOTE | 2025-04-15 11:43 | XR_ITS ---
WS: [id number] XR hip BI 3-4V wo/w pel [id number] REASON FOR EXAM: M25.551 - Pain in right hip FINDINGS: RIGHT HIP: No fracture or focal bone lesion. Moderate narrowing of the posterior inferior joint space with moderate subchondral sclerosis and osteophytosis of the acetabulum. Mild narrowing of the anterior superior joint space with moderate subchondral sclerosis and osteophytosis of the acetabulum. Mild osteophytosis of the femoral head. XR/XR hip BI 3-4V wo/w pel [id number] IMPRESSION: Moderate osteoarthritis of the right hip joint. LEFT HIP: No fracture or focal bone lesion. Moderate narrowing of the posterior inferior joint space with moderate subchond ral sclerosis and osteophytosis of the acetabulum. Mild narrowing of the anterior superior joint space with moderate subchondral s clerosis and osteophytosis of the acetabulum. Mild osteophytosis of the femoral head. IMPRESSION: Moderate osteoarthritis of the left hip.
== END 2025-04-15 11:35 | disposition home or self-care (01) ==
LOC: RAD 11:36
PROVIDERS: Family Provider Nurse Practitioner Family; PCP Nurse Practitioner Family; Visit Provider Nurse Practitioner Family
DX: M25.551 Pain in right hip (principal); M16.0 Bilateral primary osteoarthritis of hip
CPT/HCPCS: 73522

== ENCOUNTER → 2025-04-16 15:06 | Outpatient (BNVA) | payer MEDICAID, SELFPAY | PROVIDERS: Family Provider Nurse Practitioner Family; PCP Nurse Practitioner Family; Visit Provider Nurse Practitioner Family | DX: R05.9 Cough, unspecified (principal) | CPT/HCPCS: 71046 ==